=== PATIENT | female | born 1955 | race American Indian/Alaskan Native ===

== ENCOUNTER 2018-06-30 11:56 | Outpatient (CLI) | payer OTHER | END 2018-06-30 12:03 | disposition home or self-care (01) | LOC: MAMO-SONO 11:56 | DX: Z12.31 Encounter for screening mammogram for malignant neoplasm of breast (principal); N60.11 Diffuse cystic mastopathy of right breast; N60.12 Diffuse cystic mastopathy of left breast ==

== ENCOUNTER → 2019-07-06 | Outpatient (CLI) | payer OTHER | END | disposition home or self-care (01) | LOC: MAMO-SONO 08:39 | DX: Z12.31 Encounter for screening mammogram for malignant neoplasm of breast (principal); Z87.898 Personal history of other specified conditions; N60.19 Diffuse cystic mastopathy of unspecified breast ==

== ENCOUNTER 2020-07-08 08:08 | Outpatient (CLI) | payer OTHER | END 2020-07-08 08:23 | disposition home or self-care (01) | LOC: MAMO-SONO 08:08 | PROVIDERS: ATTEND Obstetrics & Gynecology Gynecology | DX: Z12.31 Encounter for screening mammogram for malignant neoplasm of breast (principal); N60.11 Diffuse cystic mastopathy of right breast; N60.12 Diffuse cystic mastopathy of left breast ==

== ENCOUNTER 2021-07-10 07:44 | Outpatient (CLI) | payer OTHER | END 2021-07-10 08:04 | disposition home or self-care (01) | LOC: MAMO-SONO 07:44 | PROVIDERS: ATTEND Specialist | DX: D24.1 Benign neoplasm of right breast (principal); Z12.31 Encounter for screening mammogram for malignant neoplasm of breast ==

== ENCOUNTER 2022-01-28 10:01 | Outpatient (CLI) | payer OTHER | END 2022-01-28 10:15 | disposition home or self-care (01) | LOC: MAMO-SONO 10:01 | PROVIDERS: ATTEND Specialist | DX: R92.8 Other abnormal and inconclusive findings on diagnostic imaging of breast (principal) ==

== ENCOUNTER 2022-07-23 07:39 | Outpatient (CLI) | payer OTHER | END 2022-07-23 07:59 | disposition home or self-care (01) | LOC: MAMO-SONO 07:39 | PROVIDERS: ATTEND Specialist | DX: D24.2 Benign neoplasm of left breast (principal) ==

== ENCOUNTER 2023-07-26 07:57 | Outpatient (CLI) | payer OTHER | END 2023-07-26 08:05 | disposition home or self-care (01) | LOC: MAMO-SONO 07:57 | PROVIDERS: ATTEND Specialist | DX: D24.2 Benign neoplasm of left breast (principal) ==

== ENCOUNTER 2024-07-28 08:12 | Outpatient (CLI) | payer OTHER | END 2024-07-28 08:18 | disposition home or self-care (01) | LOC: MAMO-SONO 08:12 | PROVIDERS: ATTEND Specialist | DX: D24.2 Benign neoplasm of left breast (principal); Z12.31 Encounter for screening mammogram for malignant neoplasm of breast ==

== ENCOUNTER 2025-07-30 07:32 | Outpatient (CLI) | payer OTHER | END 2025-07-30 07:36 | disposition home or self-care (01) | LOC: MAMO-SONO 07:32 | PROVIDERS: ATTEND Specialist | DX: D24.1 Benign neoplasm of right breast (principal) ==